=== PATIENT | male | born 1970 | race Caucasian/White ===

== ENCOUNTER 2019-08-24 16:38 | Emergency (ER) | payer BC ==
[~2019-08-24] VITALS: Ht 167.6 cm; Wt 88.5 kg
[~2019-08-24 16:38] MED LIST: ACTOS15 MG PO; LEVEMIR; LIPITOR80 MG PO; LISINOPRIL10 MG PO; MICRONASE5 MG; NOVOLOG100 UNIT/1
[2019-08-24] MEDS ORDERED: LIPITOR10 MG PO (16:44)
[2019-08-24] MEDS ORDERED: OMEPRAZOLE 20 M20 M1 PO (16:44)
[2019-08-24 17:19] LABS: ABSOLUTE BASOPHILS 0.1 thou/uL (0.0-0.2); ABSOLUTE EOSINOPHILS 0.1 thou/uL (0.0-0.7); ABSOLUTE LYMPHOCYTES 2.7 thou/uL (0.8-5.3); ABSOLUTE MONOCYTES 0.5 thou/uL (0.0-1.2); ABSOLUTE NEUTROPHILS 4.6 thou/uL (1.6-8.1); BASOPHILS 0.7 %; EOSINOPHILS 1.3 %; HEMOGLOBIN 14.3 gm/dL (14.0-18.0); LYMPHOCYTES 34.5 %; MCH 29.6 pg (26.0-34.0); MCHC 33.9 g/dL (28.0-37.0); MCV 87.3 fL (80.0-100.0); MPV 10.3 fl. (7.2-11.1); NUCLEATED RBCS 0 /100WBC; PLATELET COUNT* 247 thou/uL (150-400); POLYS 57.5 %; RBC 4.81 mil/uL (4.50-6.00); RDW-CV 13.5 % (10.5-14.5)
[2019-08-24 17:26] LABS: CALCIUM 8.7 mg/dL (8.5-10.1); POTASSIUM 3.7 mmol/L (3.5-5.1)
[2019-08-24 17:34] LABS: APTT 25.9 Seconds (25.0-31.3); PROTIME 10.5 Seconds (9.20-11.50)
[2019-08-24 17:37] LABS: ALBUMIN 3.9 g/dL (3.4-5.0); TOTAL BILIRUBIN 0.2 mg/dL (<0.1-1.0); TOTAL PROTEIN 7.5 g/dL (6.4-8.2)
[2019-08-24 19:19] VITALS: BP 131/79
--- NOTE | 2019-08-25 11:17 | EKG ---
[place] [address] ELECTROCARDIOGRAM REPORT Name: SALLY GRANGER Room: [facility]#: [id number] Admission: 08/24/19 Attend Phys: Discharge: 08/24/19 Date of : 70 Date of Service: 08/24/19 1641 Report #: [id number] THIS REPORT FOR: cc: Cherise Triplett MD, Ghazal A. 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[place] : 1970 Requested By: Mai Carvalho Order Number: [id number] MD: Saleem Chavez Measurements Intervals [place] Rate: 96 P: 60 MT: 143 QRS: 52 QRSD: 95 T: -38 QT: 354 QTc: 448 Interpretive Statements Sinus rhythm Borderline repolarization abnormality Baseline wander in lead(s) V2 Compared to ECG 12/17/2013 22:42:05 Sinus rate has slowed slightly T-wave abnormality persists Electronically Signed On 08-25-2019 11:16:50 [employer] by Saleem Chavez [email or web address] <ELECTRONICALLY SIGNED> By: Saleem Chavez MD, [facility] 08/25/19 1116 40 40 Saleem Chavez MD, [facility] /EPI
== END 2019-08-24 19:20 | disposition home or self-care (01) ==
LOC: M.ERS 16:38
PROVIDERS: Personal Emergency Response Attendant
DX: R07.89 Other chest pain (principal); E11.9 Type 2 diabetes mellitus without complications; I10 Essential (primary) hypertension; Z79.4 Long term (current) use of insulin; Z88.6 Allergy status to analgesic agent

== ENCOUNTER → 2020-12-18 | Outpatient (CLI) | payer BC ==
[~2020-12-18] MED LIST changes: +LIPITOR10 MG PO; +OMEPRAZOLE 20 M20 M1 PO
== END ==
LOC: M.MRI 13:56
PROVIDERS: ATTEND Psychiatry & Neurology Neuromuscular Medicine
DX: R42 Dizziness and giddiness (principal); R51.9 Headache, unspecified